=== PATIENT | male | born 2000 | race Two or more races ===

== ENCOUNTER 2021-10-23 21:12 | Emergency (ER) | payer MEDICAID ==
[~2021-10-23] VITALS: Ht 167.6 cm; Wt 74.8 kg
[2021-10-23] MEDS ORDERED: IBUP800T27 PO (23:14)
[2021-10-23] MEDS ORDERED: CEPH-322 PO (23:14)
[2021-10-24 01:29] VITALS: BP 126/62
== END 2021-10-24 01:28 | disposition home or self-care (01) ==
LOC: ER 21:12
DX: S01.511A Laceration without foreign body of lip, initial encounter (principal); W51.XXXA Accidental striking against or bumped into by another person, initial encounter; Y93.66 Activity, soccer; Y92.89 Other specified places as the place of occurrence of the external cause; Y99.8 Other external cause status
CPT/HCPCS: 12011; 70160